=== PATIENT | female | born 1975 | race Caucasian/White ===

== ENCOUNTER → 2016-10-24 | Day surgery (SDC) | payer MEDICARE | END | disposition home or self-care (01) | LOC: FAS 09:00 | DX: D23.62 Other benign neoplasm of skin of left upper limb, including shoulder (principal); L98.0 Pyogenic granuloma; J45.909 Unspecified asthma, uncomplicated; F41.9 Anxiety disorder, unspecified; K58.9 Irritable bowel syndrome, unspecified; K21.9 Gastro-esophageal reflux disease without esophagitis; F32.9 Major depressive disorder, single episode, unspecified; M19.90 Unspecified osteoarthritis, unspecified site; N20.0 Calculus of kidney; Z88.1 Allergy status to other antibiotic agents | CPT/HCPCS: 88305; J2405; J2704; J3010 ==